=== PATIENT | male | born 1955 | race Caucasian/White ===

== ENCOUNTER 2021-11-06 15:00 | Emergency (ER) | payer OTHER ==
[2021-11-06 16:24] LABS: BASOPHIL 0.4 % (0-2); EOSINOPHIL 0.2 % (0-7); HCT 42.6 % (42.0-52.0); HGB 15.8 g/dl (13.2-18.0); LYMPHOCYTE 7.9 % (15-48); MCH 34.3 pg (25.0-31.0); MCHC 37.1 g/dL (32.0-36.0); MCV 92.4 fL (78.0-100.0); MONOCYTE 8.6 % (0-12); MPV 9.8 fL (6.0-9.5); NEUTROPHIL 82.4 % (41-80); NRBC 0; PLT 204 K/uL (150-400); RBC 4.61 M/uL (4.70-6.00); RDW 12.8 % (11.5-14.0); WBC 12.6 K/uL (4.0-10.5)
[2021-11-06 16:29] LABS: BILIRUBIN NEGATIVE (NEGATIVE); BLOOD NEGATIVE Ery/uL (NEGATIVE); CLARITY CLEAR (CLEAR); COLOR YELLOW (YELLOW); GLUCOSE (U) TRACE mg/dL (NORMAL); LEUKOCYTES NEGATIVE Leu/uL (NEGATIVE); NITRITE NEGATIVE (NEGATIVE); PROTEIN NEGATIVE (NEGATIVE); SPECIFIC GRAVITY 1.015 (1.001-1.030); UROBILINOGEN >=8.0 mg/dL (0.2-1.0)
[2021-11-06 16:41] LABS: ALBUMIN 3.6 g/dL (3.4-5.0); BILIRUBIN - TOTAL 1.3 mg/dL (0.2-1.0); BUN/CREAT RATIO (CALC) 7.3 RATIO; CREATININE 0.82 mg/dL (0.67-1.17); GLOBULIN (CALCULATION) 3.5 g/dL; POTASSIUM 5.5 mmol/L (3.5-5.1); TOTAL PROTEIN 7.1 g/dL (6.4-8.2)
== END 2021-11-06 19:18 | disposition home or self-care (01) ==
LOC: FER 15:00
PROVIDERS: Physician Assistant
DX: R10.2 Pelvic and perineal pain (principal); E87.5 Hyperkalemia; E87.1 Hypo-osmolality and hyponatremia; E11.9 Type 2 diabetes mellitus without complications; I10 Essential (primary) hypertension; Z79.84 Long term (current) use of oral hypoglycemic drugs; Z79.899 Other long term (current) drug therapy
CPT/HCPCS: 36415; 71046; 80053; 81003; 84145; 85025; J7030; Q9967

== ENCOUNTER 2021-11-13 16:10 | Emergency (ER) | payer OTHER ==
[2021-11-13 16:54] LABS: BASOPHIL 0.8 % (0-2); EOSINOPHIL 0.8 % (0-7); HCT 32.8 % (42.0-52.0); HGB 11.6 g/dl (13.2-18.0); LYMPHOCYTE 17.7 % (15-48); MCH 33.4 pg (25.0-31.0); MCHC 35.4 g/dL (32.0-36.0); MCV 94.5 fL (78.0-100.0); MPV 9.9 fL (6.0-9.5); NEUTROPHIL 69.8 % (41-80); NRBC 0; PLT 324 K/uL (150-400); RBC 3.47 M/uL (4.70-6.00); RDW 12.8 % (11.5-14.0); WBC 19.7 K/uL (4.0-10.5)
[2021-11-13 16:59] LABS: INR 1.23 (0.9-1.2); PROTHROMBIN TIME 15.1 SECONDS (11.9-13.9); PTT 27.7 SECONDS (24.9-34.6)
[2021-11-13 17:30] LABS: ALBUMIN 2.7 g/dL (3.4-5.0); ALKALINE PHOSHATASE 19 U/L (46-116); ALT 20 U/L (16-63); AST 18 U/L (15-37); BILIRUBIN - TOTAL 0.9 mg/dL (0.2-1.0); BUN 29 mg/dL (7-18); BUN/CREAT RATIO (CALC) 29.3 RATIO; CHLORIDE 97 mmol/L (98-107); CO2 (BICARBONATE) 24 mmol/L (21-32); CREATININE 0.99 mg/dL (0.67-1.17); GLOBULIN (CALCULATION) 3.7 g/dL; GLUCOSE 154 mg/dL (74-106); LIPASE 93 U/L (73-393); MAGNESIUM 2.2 mg/dL (1.8-2.4); POTASSIUM 4.7 mmol/L (3.5-5.1); TOTAL PROTEIN 6.4 g/dL (6.4-8.2)
[2021-11-13 17:32] LABS: LACTIC ACID 5.6 mmol/L (0.4-1.9)
[2021-11-13 19:26] LABS: CORONAVIRUS 2019 SARS-COV-2 NEGATIVE (NEGATIVE); INFLUENZA A NAA NEGATIVE (NEGATIVE)
== END 2021-11-13 21:50 | disposition other institution (70) ==
LOC: FER 16:10
PROVIDERS: Emergency Medicine
DX: I85.01 Esophageal varices with bleeding (principal); K92.0 Hematemesis; K92.1 Melena; Z20.822 Contact with and (suspected) exposure to COVID-19
CPT/HCPCS: 36415; 80053; 82271; 83605; 83690; 83735; 84145; 84484; 85025; 85610; 85730; 86850; 86900; 86901; 87040; C9113; G0480; J2354; J2543; J7030; U0002